=== PATIENT | female | born 1950 | race Caucasian/White ===

== ENCOUNTER 2019-06-24 23:17 | Inpatient (IN) | payer MEDICARE ==
[~2019-06-24] VITALS: Ht 165.1 cm; Wt 54.5 kg
[2019-06-24 23:59] LABS: PARTIAL THROMBOPLASTIN TIME 26 SECONDS (22-32)
[2019-06-25] VITALS (20 sets, daily range): BP systolic 133–184; BP diastolic 57–84
[2019-06-25 00:01] LABS: ALANINE AMINOTRANSFERASE 55 U/L (12-78); ALBUMIN 3.8 G/DL (3.4-5.0); ALBUMIN/GLOBULIN RATIO 0.8 (1.1-1.5); ALKALINE PHOSPHATASE 68 IU/L (46-116); ANION GAP 11 (8-16); ASPARTATE AMINO TRANSFERASE 52 U/L (10-37); BILIRUBIN,TOTAL 0.3 MG/DL (0.1-1.0); BLOOD UREA NITROGEN 12 MG/DL (7-18); BUN/CREATININE RATIO 10.5 (6.6-38.0); CALCIUM 9.2 MG/DL (8.5-10.1); CHLORIDE 101 MMOL/L (99-107); CREATININE 1.14 MG/DL (0.40-0.90); GLUCOSE 267 MG/DL (70-104); SODIUM 138 MMOL/L (135-145); TOTAL CARBON DIOXIDE 25.9 MMOL/L (24-32); TOTAL PROTEIN 8.5 G/DL (6.4-8.2); eGFR 47 ML/MIN
[2019-06-25 00:04] LABS: EOSINOPHILS % (AUTO) 1.3 % (0-6); HEMATOCRIT 27.1 % (35.0-45.0); HEMOGLOBIN 8.9 g/dl (12.0-16.0); LYMPHOCYTES # (AUTO) 1.3 X10'3 (1.1-4.8); LYMPHOCYTES % (AUTO) 43.8 % (21-51); MEAN CORPUSCULAR HEMOGLOBIN 26.7 PG (27.0-31.0); MEAN CORPUSCULAR HGB CONC 32.8 g/dL (33.0-36.5); MEAN CORPUSCULAR VOLUME 81.4 FL (78-98); MEAN PLATELET VOLUME 9.3 FL (7.4-10.4); MONOCYTES # (AUTO) 0.3 X10'3 (0-0.9); MONOCYTES % (AUTO) 10.8 % (2-12); NEUTROPHILS # (AUTO) 1.3 X10'3 (1.8-7.7); NEUTROPHILS % (AUTO) 43.1 % (42-75); PLATELET COUNT 144 X10'3 (140-440); RED BLOOD COUNT 3.33 X10'6 (4.20-5.60); RED CELL DISTRIBUTION WIDTH 14.4 % (11.5-14.5)
[2019-06-25 00:12] LABS: D-DIMER 0.24 MG/L FEU (0-0.50)
[2019-06-25 00:22] LABS: CHOL/HDL RATIO 1.8 (0.00-4.99); CHOLESTEROL 91 MG/DL (0-200); HDL CHOLESTEROL 51 MG/DL (35-60); LDL CHOLESTEROL 35 MG/DL (50-100); TRIGLYCERIDES 47 MG/DL (20-135)
[2019-06-25 00:26] LABS: LYMPHOCYTES % (MANUAL) 47 % (21-51); MONOCYTES % (MANUAL) 8 % (2-12); NEUTROPHILS % (MANUAL) 45 % (42-75); PLATELET ESTIMATE NORMAL; TOTAL CELLS COUNTED 100
[2019-06-25 00:27] LABS: ELLIPTOCYTES FEW
--- NOTE | 2019-06-25 00:47 | NUR ---
pt tucked into bed, encouraged her to get rest. Lights turned off.
[2019-06-25] MEDS ORDERED: potassium Cl 20 mEq SR tablet PO ONE (00:55)
--- NOTE | 2019-06-25 01:01 | NUR ---
I asked the patient if she was bleeding from anywhere and she said no. I informed her of her hgb. She said that she doesn't know. She said she hasn't felt well for awhile and that she has lost weight. She said that she usually weighs 150#.
--- NOTE | 2019-06-25 01:02 | NUR ---
Dr. Valencia was informed that the patient doesn't believe she is bleeding from anywhere for her hgb to be so low.
[2019-06-25] MEDS ORDERED: TRAZ-219 PO (01:11)
[2019-06-25] MEDS ORDERED: ASPI81TA52 PO (01:11)
[2019-06-25] MEDS ORDERED: HYDR25TA4 PO (01:11)
[2019-06-25] MEDS ORDERED: ATOR40TA PO (01:11)
[2019-06-25] MEDS ORDERED: ENAL20TA75 PO (01:11)
[2019-06-25] MEDS ORDERED: METF500T PO (01:11)
[2019-06-25] MEDS ORDERED: normal saline 1000ml 1,000 ML IV SCH (02:00)
[2019-06-25] MEDS ORDERED: acetaminophen 325mg tablet PO PRN (02:00)
[2019-06-25] MEDS ORDERED: mag hydrox/Alum hydrox/simeth 30ml oral suspension PO PRN (02:00)
[2019-06-25] MEDS ORDERED: magnesium hydroxide 30ml (MOM) UD suspension PO PRN (02:00)
[2019-06-25] MEDS ORDERED: ondansetron/PF 4mg/2ml inj IV PRN (02:00)
[2019-06-25] MEDS ORDERED: dextrose ORAL solution 15 GM/59 ML bottle PO PRN ×2 (02:05)
[2019-06-25] MEDS ORDERED: glucagon, human recombinant 1mg kit SUBCUT PRN (02:05)
[2019-06-25] MEDS ORDERED: insulin Lispro (HumaLOG) vial - multi-dose SQ SCH (02:05)
[2019-06-25] MEDS ORDERED: dextrose 50%-water 50ml dispensing syringe IV PRN ×2 (02:05)
[2019-06-25] MEDS ORDERED: metoprolol tartrate 50mg tablet PO ONE (02:05)
[2019-06-25] MEDS ORDERED: MESSAGE TO PHARMACY PO ONE (02:05)
[2019-06-25] MEDS: traZODone 50mg tablet PO SCH ×2 (02:10→21:00)
[2019-06-25 02:21] LABS: HEMOGLOBIN A1C 6.6 % (4.5-6.2)
--- NOTE | 2019-06-25 02:30 | NUR ---
Patient in ER to be transferred to room PCU 3010K. I have received report from DAMIAN Pereyra and had the opportunity to ask questions and assume patient care.
--- NOTE | 2019-06-25 06:00 | NUR ---
Patient in room PCU 3016. I have received report from Farzaneh SALGADO and had the opportunity to ask questions and assume patient care.
--- NOTE | 2019-06-25 06:21 | NUR ---
Problems reprioritized. Patient report given, questions answered & plan of care reviewed with DAMIAN Dubon.
[2019-06-25 06:40] LABS: ALANINE AMINOTRANSFERASE 52 U/L (12-78); ALBUMIN 3.6 G/DL (3.4-5.0); ALBUMIN/GLOBULIN RATIO 0.8 (1.1-1.5); ALKALINE PHOSPHATASE 66 IU/L (46-116); ANION GAP 8 (8-16); ASPARTATE AMINO TRANSFERASE 52 U/L (10-37); BILIRUBIN,TOTAL 0.3 MG/DL (0.1-1.0); BLOOD UREA NITROGEN 13 MG/DL (7-18); BUN/CREATININE RATIO 14.3 (6.6-38.0); CALCIUM 9.4 MG/DL (8.5-10.1); CHLORIDE 104 MMOL/L (99-107); CREATININE 0.91 MG/DL (0.40-0.90); GLUCOSE 107 MG/DL (70-104); SODIUM 142 MMOL/L (135-145); TOTAL CARBON DIOXIDE 29.7 MMOL/L (24-32); TOTAL PROTEIN 8.1 G/DL (6.4-8.2); eGFR 61 ML/MIN
[2019-06-25] MEDS: heparin, porcine 5000 units/ml vial SQ SCH ×2 (08:00→20:00)
[2019-06-25] MEDS: atorvastatin 20mg tablet PO SCH (08:19)
[2019-06-25] MEDS: aspirin 81mg tablet.DR PO SCH (08:19)
[2019-06-25] MEDS ORDERED: regadenoson 0.4mg/5ml syringe IV ONE (09:10)
[2019-06-25] MEDS ORDERED: aminophylline 250mg/10ml inj. IV PRN (09:10)
[2019-06-25] MEDS ORDERED: metoprolol tartrate 1mg/ml inj IV PRN (09:10)
[2019-06-25] MEDS ORDERED: nitroGLYCERIN 0.4mg SUBLingual tab SL PRN (09:10)
--- NOTE | 2019-06-25 10:45 | NUR ---
Patient taken to stress lab for lexiscan. They will do pre-procedure images then have 12 hour troponin drawn and proceed with lexiscan if appropriate.
--- NOTE | 2019-06-25 13:34 | NUR ---
Page to Dr Cavanaugh re: Room 0439Z Daniela Claros complete, what diet would you like to order? Yuni [id number]
--- NOTE | 2019-06-25 15:09 | NUR ---
Page to Dr Cavanaugh re: Room 8946O Elsa Soliman, having anxiety, have not seen Dr Ricketts yet, can she have some IV Ativan? Yuni [id number]
[2019-06-25] MEDS ORDERED: LORazepam 0.5 MG tablet PO ONE (15:25)
[2019-06-25] MEDS ORDERED: midazolam 2 mg/2 ml injection ONE (16:18)
[2019-06-25] MEDS ORDERED: fentaNYL/PF 50MCG/1 ML 2ML syringe ONE (16:18)
[2019-06-25] MEDS ORDERED: LIDOcaine 1% (10mg/ml)w/preservative injection 20ml MDV ONE (16:18)
[2019-06-25] MEDS ORDERED: nitroGLYCERIN-Tridil 50MG/D5W 250 ML IV ONE (16:18)
[2019-06-25] MEDS ORDERED: heparin 1,000unit/ml 10ml vial 10 ML ONE (16:19)
[2019-06-25] MEDS ORDERED: iohexol 350MG/ML 100ml bottle IV ONE (16:19)
[2019-06-25] MEDS ORDERED: iohexol 350 MG/ML 50ML vial IV ONE (16:19)
[2019-06-25] MEDS ORDERED: verapamil 2.5 mg/ml inj IV ONE (16:23)
[2019-06-25] MEDS ORDERED: heparin 25,000 UNIT/250ml bag 250 ML IV ONE (17:20)
[2019-06-25] MEDS ORDERED: iohexol 350 MG/1 ML 200ml bottle ONE (17:21)
[2019-06-25] MEDS ORDERED: ticagrelor 90mg tablet ONE (18:06)
[2019-06-25] MEDS ORDERED: nitroGLYCERIN-Tridil 50MG/D5W 250 ML IV PRN (19:27)
[2019-06-25] MEDS ORDERED: aspirin 81mg tab.chew PO SCH (19:32)
[2019-06-25] MEDS ORDERED: lisinopril 10 MG tablet PO ONE (19:35)
[2019-06-25] MEDS ORDERED: OXAZEpam 15mg capsule PO PRN (19:35)
[2019-06-25] MEDS ORDERED: HYDROcodone/acetaminophen 10/325mg tab PO PRN (19:35)
[2019-06-25] MEDS ORDERED: cyclobenzaprine 10mg tablet PO PRN (19:35)
[2019-06-25] MEDS: HYDROcodone/acetaminophen 10/325mg tab PO PRN (22:33)
[2019-06-26] VITALS (13 sets, daily range): BP systolic 119–166; BP diastolic 43–75
--- NOTE | 2019-06-26 01:01 | NUR ---
Sheath to right groin removed at 2315. ACT 164. Manual pressure held for 20 min, then femstop applied. No bleeding or hematoma. Patient tolerated procedure well.
[2019-06-26 06:25] LABS: ALANINE AMINOTRANSFERASE 48 U/L (12-78); ALBUMIN 3.3 G/DL (3.4-5.0); ALBUMIN/GLOBULIN RATIO 0.8 (1.1-1.5); ALKALINE PHOSPHATASE 53 IU/L (46-116); ANION GAP 7 (8-16); ASPARTATE AMINO TRANSFERASE 49 U/L (10-37); BILIRUBIN,TOTAL 0.3 MG/DL (0.1-1.0); BLOOD UREA NITROGEN 14 MG/DL (7-18); BUN/CREATININE RATIO 12.7 (6.6-38.0); CALCIUM 8.4 MG/DL (8.5-10.1); CHLORIDE 103 MMOL/L (99-107); GLUCOSE 131 MG/DL (70-104); SODIUM 138 MMOL/L (135-145); TOTAL CARBON DIOXIDE 27.9 MMOL/L (24-32); TOTAL PROTEIN 7.4 G/DL (6.4-8.2); eGFR 49 ML/MIN
--- NOTE | 2019-06-26 06:30 | NUR ---
Patient in room ICU 2037. I have received report from DAMINA Willett and had the opportunity to ask questions and assume patient care.
[2019-06-26] MEDS: HYDROcodone/acetaminophen 10/325mg tab PO PRN (06:43)
[2019-06-26 06:51] LABS: BASOPHILS % (AUTO) 0.7 % (0-1); EOSINOPHILS % (AUTO) 0.9 % (0-6); HEMATOCRIT 23.3 % (35.0-45.0); HEMOGLOBIN 7.8 g/dl (12.0-16.0); LYMPHOCYTES # (AUTO) 1.2 X10'3 (1.1-4.8); LYMPHOCYTES % (AUTO) 31.4 % (21-51); MEAN CORPUSCULAR HEMOGLOBIN 27.3 PG (27.0-31.0); MEAN CORPUSCULAR HGB CONC 33.7 g/dL (33.0-36.5); MEAN CORPUSCULAR VOLUME 80.9 FL (78-98); MEAN PLATELET VOLUME 9.4 FL (7.4-10.4); MONOCYTES # (AUTO) 0.4 X10'3 (0-0.9); MONOCYTES % (AUTO) 10.3 % (2-12); NEUTROPHILS # (AUTO) 2.2 X10'3 (1.8-7.7); NEUTROPHILS % (AUTO) 56.7 % (42-75); PLATELET COUNT 133 X10'3 (140-440); RED BLOOD COUNT 2.88 X10'6 (4.20-5.60); RED CELL DISTRIBUTION WIDTH 14.4 % (11.5-14.5); WHITE BLOOD COUNT 3.8 X10'3 (4.5-11.0)
[2019-06-26] MEDS: heparin, porcine 5000 units/ml vial SQ SCH (07:24)
[2019-06-26] MEDS: aspirin 81mg tablet.DR PO SCH (07:24)
[2019-06-26] MEDS: atorvastatin 20mg tablet PO SCH (07:24)
[2019-06-26] MEDS ORDERED: ticagrelor 90mg tablet PO SCH (08:00)
[2019-06-26] MEDS ORDERED: lisinopril 20mg tablet PO SCH (08:00)
[2019-06-26] MEDS ORDERED: TICA90TA PO (11:38)
[2019-06-26] MEDS ORDERED: METO-539 PO (11:38)
--- NOTE | 2019-06-26 14:45 | NUR ---
Pt discharged to home @ 1355. She was taken by wheelchair to her car to drive home with daughter following her home in her car. All discharge instructions provided, d/c paper is signed. New medication called to [facility].
== END 2019-06-26 13:56 | disposition home or self-care (01) | DRG 247 ==
LOC: ER 23:18 → ED HOLD 06-25 02:16 → PCU 3S 06-25 03:00 → ICU 2S 06-25 18:46
PROVIDERS: ADMIT Internal Medicine; ATTEND Internal Medicine
PROC: 027034Z Dilation of Coronary Artery, One Artery with Drug-eluting Intraluminal Device, Percutaneous Approach (ICD-10-PCS; principal; 2019-06-25)
PROC: 02703ZZ Dilation of Coronary Artery, One Artery, Percutaneous Approach (ICD-10-PCS; 2019-06-25)
PROC: 4A023N7 Measurement of Cardiac Sampling and Pressure, Left Heart, Percutaneous Approach (ICD-10-PCS; 2019-06-25)
PROC: 3E033HZ Introduction of Radioactive Substance into Peripheral Vein, Percutaneous Approach (ICD-10-PCS; 2019-06-25)
PROC: B2111ZZ Fluoroscopy of Multiple Coronary Arteries using Low Osmolar Contrast (ICD-10-PCS; 2019-06-25)
PROC: B2151ZZ Fluoroscopy of Left Heart using Low Osmolar Contrast (ICD-10-PCS; 2019-06-25)
PROC: 4A02XM4 Measurement of Cardiac Total Activity, External Approach (ICD-10-PCS; 2019-06-25)
DX: I20.9 Angina pectoris, unspecified (principal); E11.65 Type 2 diabetes mellitus with hyperglycemia; E87.6 Hypokalemia; E78.5 Hyperlipidemia, unspecified; D64.9 Anemia, unspecified; E11.51 Type 2 diabetes mellitus with diabetic peripheral angiopathy without gangrene; E78.00 Pure hypercholesterolemia, unspecified; I10 Essential (primary) hypertension; B19.20 Unspecified viral hepatitis C without hepatic coma; Z60.2 Problems related to living alone; Z79.02 Long term (current) use of antithrombotics/antiplatelets; Z88.8 Allergy status to other drugs, medicaments and biological substances; Z79.82 Long term (current) use of aspirin; Z79.84 Long term (current) use of oral hypoglycemic drugs; Z79.899 Other long term (current) drug therapy; Z82.49 Family history of ischemic heart disease and other diseases of the circulatory system; Z87.891 Personal history of nicotine dependence; Z90.49 Acquired absence of other specified parts of digestive tract
CPT/HCPCS: 92920; 93306; 93458; 99285; C9600; 36415; 71045; 78452; 80053; 80061; 82948; 83036; 84439; 84443; 84484; 85025; 85347; 85379; 85610; 85730; 87081; 93005; 93017; 99152; 99153; A4620; A6258; A9500; C1725; C1769; C1874; C1894; G0378; J0280; J1644; J1815; J2001; J2250; J2405; J2785; J3010; J3490; J7030; Q9967

== ENCOUNTER 2019-07-28 12:37 | Outpatient (CLI) | payer MEDICARE ==
[~2019-07-28 12:37] MED LIST: ASPI81TA52 PO; ATOR40TA PO; ENAL20TA75 PO; METF500T PO; TICA90TA PO; TRAZ-219 PO
== END 2019-07-28 23:59 | disposition home or self-care (01) ==
LOC: VAS 12:37
PROVIDERS: ATTEND Internal Medicine Cardiovascular Disease
DX: I65.23 Occlusion and stenosis of bilateral carotid arteries (principal); I70.293 Other atherosclerosis of native arteries of extremities, bilateral legs; I10 Essential (primary) hypertension; Z87.891 Personal history of nicotine dependence; Z95.828 Presence of other vascular implants and grafts
CPT/HCPCS: 93880; 93922; 93925

== ENCOUNTER 2020-05-04 11:23 | Outpatient (CLI) | payer MEDICARE ==
[2020-05-04] VITALS (22 sets, daily range): BP systolic 79–209; BP diastolic 38–110
[~2020-05-04 11:23] MED LIST changes: -ASPI81TA52 PO; +CALC-1051 PO; +CLON0.1T2 PO; +HYDR-3965 PO; +METO-395 PO; +PANT-47 PO; -TICA90TA PO; +TICA90TA2 PO; -TRAZ-219 PO; +TRAZ-256 PO
== END 2020-05-04 23:59 | disposition home or self-care (01) ==
LOC: CARD DIAG 11:23
PROVIDERS: ATTEND Internal Medicine Cardiovascular Disease
DX: R42 Dizziness and giddiness (principal)
CPT/HCPCS: 93660

== ENCOUNTER 2023-09-13 15:33 | Inpatient (IN) | payer MEDICARE ==
[~2023-09-13] VITALS: Ht 166.4 cm; Wt 63.5 kg
[2023-09-13 16:42] LABS: BASOPHILS % (AUTO) 0.6 % (0-1); EOSINOPHILS % (AUTO) 0.3 % (0-6); HEMATOCRIT 28.7 % (35.0-45.0); HEMOGLOBIN 9.4 g/dl (12.0-16.0); LYMPHOCYTES # (AUTO) 1.3 X10'3 (1.1-4.8); MEAN CORPUSCULAR HEMOGLOBIN 26.8 PG (27.0-31.0); MEAN CORPUSCULAR HGB CONC 32.7 g/dL (33.0-36.5); MEAN CORPUSCULAR VOLUME 81.8 FL (78-98); MEAN PLATELET VOLUME 9.9 FL (7.4-10.4); MONOCYTES # (AUTO) 0.5 X10'3 (0-0.9); MONOCYTES % (AUTO) 7.2 % (2-12); NEUTROPHILS # (AUTO) 4.7 X10'3 (1.8-7.7); NEUTROPHILS % (AUTO) 71.9 % (42-75); PLATELET COUNT 208 X10'3 (140-440); RED BLOOD COUNT 3.51 X10'6 (4.20-5.60); RED CELL DISTRIBUTION WIDTH 14.2 % (11.5-14.5); WHITE BLOOD COUNT 6.6 X10'3 (4.5-11.0)
[2023-09-13 16:52] LABS: ALANINE AMINOTRANSFERASE 16 U/L (12-78); ALBUMIN 3.4 G/DL (3.4-5.0); ALBUMIN/GLOBULIN RATIO 0.7 (1.1-1.5); ALKALINE PHOSPHATASE 80 IU/L (46-116); ANION GAP 12 (8-16); ASPARTATE AMINO TRANSFERASE 16 U/L (10-37); BILIRUBIN,TOTAL 0.3 MG/DL (0.1-1.0); BLOOD UREA NITROGEN 9 MG/DL (7-18); BUN/CREATININE RATIO 5.9 (10.0-20.0); CALCIUM 9.4 MG/DL (8.5-10.1); CHLORIDE 99 MMOL/L (99-107); CREATININE 1.52 MG/DL (0.40-0.90); POTASSIUM 3.4 MMOL/L (3.5-5.1); SODIUM 135 MMOL/L (135-145); TOTAL CARBON DIOXIDE 23.8 MMOL/L (24-32); TOTAL PROTEIN 8.6 G/DL (6.4-8.2); eCRCL 30 ML/MIN; eGFR 34 ML/MIN
[2023-09-13 16:54] LABS: GLUCOSE 418 MG/DL (70-104)
[2023-09-13] MEDS ORDERED: normal saline 1000ML IV soln IVB ONE (16:55)
[2023-09-13] MEDS ORDERED: POTASSIUM BICARB 20meq eff tab 20 MEQ TABLET.EFF PO SCH (16:55)
[2023-09-13 17:02] LABS: PRO BRAIN NATRIURETIC PEPTIDE 849 PG/ML (0-125)
[2023-09-13] MEDS ORDERED: POTASSIUM BICARB 20meq eff tab 20 MEQ TABLET.EFF PO ONE (17:10)
[2023-09-13] MEDS ORDERED: insulin regular, human 10 units/0.1 ml syringe IV ONE (18:20)
[2023-09-13] MEDS ORDERED: ondansetron/PF 4mg/2ml inj IV PRN (20:05)
[2023-09-13] MEDS ORDERED: HYDROcodone/acetaminophen 5mg/325mg tablet PO PRN (20:05)
[2023-09-13] MEDS ORDERED: potassium Cl 40MEQ/1/2NS 520ml 520 ML IV PRN (20:05)
[2023-09-13] MEDS ORDERED: potassium Cl 20 mEq SR tablet PO PRN (20:05)
[2023-09-13] MEDS ORDERED: magnesium 4gm in 100ml NS 100 ML IV PRN (20:05)
[2023-09-13] MEDS ORDERED: PERFLUTREN PROTEIN-A MICROSPHR (Optison) 0.22 MG/ML 3ML VIAL IV ONE (20:05)
[2023-09-13] MEDS ORDERED: HYDROcodone/acetaminophen 10/325mg tab PO PRN (20:05)
[2023-09-13] MEDS ORDERED: DEXTROSE 15 GM of carb/4 tabs (each vial/BOTTLE has 4 tablets) PO PRN ×2 (20:05)
[2023-09-13] MEDS ORDERED: albuterol 2.5 MG/3 ML nebule NEB PRN (20:05)
[2023-09-13] MEDS ORDERED: magnesium hydroxide 30ml (MOM) UD suspension PO PRN (20:05)
[2023-09-13] MEDS ORDERED: MESSAGE TO PHARMACY PO ONE (20:05)
[2023-09-13] MEDS ORDERED: ipratropium/albuterol 3ml nebule NEB PRN (20:05)
[2023-09-13] MEDS ORDERED: dextrose 50%-water 50ml dispensing syringe IV PRN ×2 (20:05)
[2023-09-13] MEDS ORDERED: acetaminophen 325mg tablet PO PRN ×2 (20:05)
[2023-09-13] MEDS ORDERED: mag hydrox/Alum hydrox/simeth 30ml oral suspension PO PRN (20:05)
[2023-09-13] MEDS ORDERED: magnesium 2GM in 50ml NS 50 ML IV PRN (20:05)
[2023-09-13] MEDS ORDERED: glucagon, human recombinant 1mg kit SUBCUT PRN (20:05)
[2023-09-13] MEDS ORDERED: metFORMIN 500mg tablet PO ONE (22:25)
[2023-09-13] MEDS ORDERED: lisinopril 20mg tablet PO SCH (22:25)
[2023-09-13] MEDS: insulin glargine (Lantus) pen - multi-dose SQ SCH (22:53)
[2023-09-13 23:03] VITALS: PULSE 102; RESP 16; O2SAT 97
[2023-09-14 03:26] LABS: ALANINE AMINOTRANSFERASE 15 U/L (12-78); ALBUMIN 3.1 G/DL (3.4-5.0); ALBUMIN/GLOBULIN RATIO 0.6 (1.1-1.5); ALKALINE PHOSPHATASE 72 IU/L (46-116); ANION GAP 11 (8-16); ASPARTATE AMINO TRANSFERASE 13 U/L (10-37); BILIRUBIN,TOTAL 0.3 MG/DL (0.1-1.0); BLOOD UREA NITROGEN 8 MG/DL (7-18); CALCIUM 9.3 MG/DL (8.5-10.1); CHLORIDE 104 MMOL/L (99-107); CREATININE 1.34 MG/DL (0.40-0.90); GLUCOSE 209 MG/DL (70-104); MAGNESIUM 1.7 MG/DL (1.5-2.4); POTASSIUM 3.4 MMOL/L (3.5-5.1); SODIUM 139 MMOL/L (135-145); TOTAL CARBON DIOXIDE 24.2 MMOL/L (24-32); TOTAL PROTEIN 7.9 G/DL (6.4-8.2); eCRCL 34 ML/MIN; eGFR 39 ML/MIN
[2023-09-14 03:35] LABS: BASOPHILS % (AUTO) 0.7 % (0-1); EOSINOPHILS % (AUTO) 0.6 % (0-6); HEMATOCRIT 26.9 % (35.0-45.0); HEMOGLOBIN 8.8 g/dl (12.0-16.0); LYMPHOCYTES # (AUTO) 2.1 X10'3 (1.1-4.8); MEAN CORPUSCULAR HEMOGLOBIN 26.5 PG (27.0-31.0); MEAN CORPUSCULAR HGB CONC 32.6 g/dL (33.0-36.5); MEAN CORPUSCULAR VOLUME 81.3 FL (78-98); MEAN PLATELET VOLUME 9.8 FL (7.4-10.4); MONOCYTES # (AUTO) 0.4 X10'3 (0-0.9); MONOCYTES % (AUTO) 7.1 % (2-12); NEUTROPHILS # (AUTO) 3.7 X10'3 (1.8-7.7); NEUTROPHILS % (AUTO) 58.6 % (42-75); PLATELET COUNT 181 X10'3 (140-440); RED BLOOD COUNT 3.31 X10'6 (4.20-5.60); RED CELL DISTRIBUTION WIDTH 14.5 % (11.5-14.5); WHITE BLOOD COUNT 6.3 X10'3 (4.5-11.0)
[2023-09-14 05:29] LABS: % IRON SATURATION 8 % (11-46); IRON 30 UG/DL (49-151); TOTAL IRON BINDING CAPACITY 400 UG/DL (259-388)
[2023-09-14] MEDS: docusate sod 100mg capsule PO SCH ×2 (08:00→19:36)
[2023-09-14] MEDS: K and/or MAG REPLACEMENT MC SCH ×2 (08:00→21:30)
[2023-09-14 08:11] VITALS: PULSE 106; RESP 16; O2SAT 98
[2023-09-14] MEDS: nicotine 7mg patch - 24hr TD SCH (08:42)
[2023-09-14] MEDS: potassium Cl 20 mEq SR tablet PO PRN ×3 (09:44→21:37)
[2023-09-14] MEDS: insulin Lispro (HumaLOG) vial - multi-dose SQ SCH (15:16)
[2023-09-14] MEDS ORDERED: LISI40TA13 PO (15:55)
[2023-09-14] MEDS ORDERED: AMLO-139 PO (15:55)
[2023-09-14 16:35] VITALS: RESP 14; O2SAT 97
[2023-09-14 18:05] LABS: HEMOGLOBIN A1C > 12.0 % (4.5-6.2)
[2023-09-14] MEDS ORDERED: amLODIPine 5mg tablet PO ONE (19:10)
[2023-09-14 19:27] VITALS: BP 169/94; PULSE 105; RESP 18; TEMP 98.1; O2SAT 96
[2023-09-14] MEDS ORDERED: enoxaparin 40mg/0.4ml syringe SQ SCH (20:00)
[2023-09-14 20:09] VITALS: RESP 18; O2SAT 96
[2023-09-14] MEDS: insulin glargine (Lantus) pen - multi-dose SQ SCH (21:41)
[2023-09-14 22:00] VITALS: BP 158/101; PULSE 102; RESP 18; TEMP 99; O2SAT 97
[2023-09-14] MEDS: lisinopril 20mg tablet PO SCH (22:53)
[2023-09-15 02:00] VITALS: BP 144/66; PULSE 90; RESP 13; TEMP 97.9; O2SAT 98
[2023-09-15 07:05] LABS: BASOPHILS % (AUTO) 0.7 % (0-1); EOSINOPHILS # (AUTO) 0.1 X10'3 (0-0.9); EOSINOPHILS % (AUTO) 1.6 % (0-6); HEMATOCRIT 26.8 % (35.0-45.0); HEMOGLOBIN 8.7 g/dl (12.0-16.0); LYMPHOCYTES # (AUTO) 2.4 X10'3 (1.1-4.8); LYMPHOCYTES % (AUTO) 45.2 % (21-51); MEAN CORPUSCULAR HGB CONC 32.5 g/dL (33.0-36.5); MEAN PLATELET VOLUME 9.2 FL (7.4-10.4); MONOCYTES # (AUTO) 0.4 X10'3 (0-0.9); MONOCYTES % (AUTO) 8.4 % (2-12); NEUTROPHILS # (AUTO) 2.3 X10'3 (1.8-7.7); NEUTROPHILS % (AUTO) 44.1 % (42-75); PLATELET COUNT 176 X10'3 (140-440); RED BLOOD COUNT 3.23 X10'6 (4.20-5.60); RED CELL DISTRIBUTION WIDTH 14.3 % (11.5-14.5); WHITE BLOOD COUNT 5.3 X10'3 (4.5-11.0)
[2023-09-15 07:06] VITALS: PULSE 95; RESP 16; O2SAT 97
[2023-09-15 07:20] LABS: ALANINE AMINOTRANSFERASE 11 U/L (12-78); ALBUMIN/GLOBULIN RATIO 0.6 (1.1-1.5); ALKALINE PHOSPHATASE 64 IU/L (46-116); ANION GAP 11 (8-16); ASPARTATE AMINO TRANSFERASE 19 U/L (10-37); BILIRUBIN,TOTAL 0.2 MG/DL (0.1-1.0); BLOOD UREA NITROGEN 9 MG/DL (7-18); BUN/CREATININE RATIO 6.3 (10.0-20.0); CALCIUM 8.8 MG/DL (8.5-10.1); CHLORIDE 103 MMOL/L (99-107); CREATININE 1.42 MG/DL (0.40-0.90); GLUCOSE 125 MG/DL (70-104); MAGNESIUM 1.6 MG/DL (1.5-2.4); POTASSIUM 3.9 MMOL/L (3.5-5.1); SODIUM 138 MMOL/L (135-145); TOTAL CARBON DIOXIDE 24.1 MMOL/L (24-32); TOTAL PROTEIN 7.9 G/DL (6.4-8.2); eCRCL 32 ML/MIN; eGFR 36 ML/MIN
[2023-09-15] MEDS: K and/or MAG REPLACEMENT MC SCH (08:00)
[2023-09-15 08:03] VITALS: BP 182/92; PULSE 112; RESP 16; TEMP 97.9; O2SAT 97
[2023-09-15] MEDS: lisinopril 20mg tablet PO SCH (08:04)
[2023-09-15] MEDS: docusate sod 100mg capsule PO SCH (08:04)
[2023-09-15 08:05] VITALS: RESP 16
[2023-09-15] MEDS: nicotine 7mg patch - 24hr TD SCH (08:05)
[2023-09-15] MEDS: insulin Lispro (HumaLOG) vial - multi-dose SQ SCH ×2 (09:37→13:26)
[2023-09-15] MEDS ORDERED: LANTUS SQ (10:12)
[2023-09-15] MEDS ORDERED: FER325T PO (10:12)
[2023-09-15 10:56] VITALS: BP 179/83; PULSE 105; RESP 15; TEMP 98.2; O2SAT 100
[2023-09-15 15:09] LABS: OCCULT BLOOD STOOL NEGATIVE (Neg)
[2023-09-16] MEDS ORDERED: ferrous sulfate 325mg tablet PO SCH (08:00)
== END 2023-09-15 15:33 | disposition home health service (06) | DRG 812 ==
LOC: ER 15:34 → ED HOLD 20:19 → EDBEDREQ 09-14 15:30 → PCU 3S 09-14 16:22
PROVIDERS: ADMIT Family Medicine; ATTEND Internal Medicine
DX: D50.9 Iron deficiency anemia, unspecified (principal); I13.0 Hypertensive heart and chronic kidney disease with heart failure and stage 1 through stage 4 chronic kidney disease, or unspecified chronic kidney disease; E11.65 Type 2 diabetes mellitus with hyperglycemia; E87.6 Hypokalemia; I50.9 Heart failure, unspecified; E11.51 Type 2 diabetes mellitus with diabetic peripheral angiopathy without gangrene; E78.00 Pure hypercholesterolemia, unspecified; N18.30 Chronic kidney disease, stage 3 unspecified; E78.5 Hyperlipidemia, unspecified; G47.00 Insomnia, unspecified; F17.210 Nicotine dependence, cigarettes, uncomplicated; Z79.4 Long term (current) use of insulin; Z80.49 Family history of malignant neoplasm of other genital organs; Z82.49 Family history of ischemic heart disease and other diseases of the circulatory system; Z82.5 Family history of asthma and other chronic lower respiratory diseases; Z83.3 Family history of diabetes mellitus; Z98.62 Peripheral vascular angioplasty status; Z79.899 Other long term (current) drug therapy
CPT/HCPCS: 36415; 71045; 80053; 82272; 82948; 83036; 83540; 83550; 83735; 83880; 84484; 85025; 87081; 93005; 93306; 94760; 96361; 96374; 97116; 97161; 97530; 99285; G0378; J1815; J7030